=== PATIENT | male | born 1985 | race Two or more races ===

== ENCOUNTER 2023-04-12 11:46 | Emergency (ER) | payer OTHER ==
[~2023-04-12] VITALS: Ht 182.9 cm; Wt 100.0 kg
[2023-04-12 12:08] VITALS: O2SAT 98
[2023-04-12] MEDS ORDERED: LISI1POW (12:31)
[2023-04-12] MEDS ORDERED: METF-900 (12:31)
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
[2023-04-12 15:35] VITALS: BP 153/99; PULSE 98; RESP 14; TEMP 98.4
== END 2023-04-12 15:53 | disposition home or self-care (01) ==
LOC: ER 11:47
DX: R51.9 Headache, unspecified (principal); V89.2XXA Person injured in unspecified motor-vehicle accident, traffic, initial encounter; Y93.89 Activity, other specified; Y92.89 Other specified places as the place of occurrence of the external cause; Y99.8 Other external cause status
CPT/HCPCS: 99282

== ENCOUNTER 2023-06-21 10:04 | Emergency (ER) | payer OTHER ==
[~2023-06-21] VITALS: Ht 185.4 cm; Wt 92.9 kg
[~2023-06-21 10:04] MED LIST: LISI1POW; METF-900
[2023-06-21] MEDS ORDERED: TAM75C PO (13:00)
[2023-06-21 13:05] VITALS: BP 168/79; PULSE 91; RESP 16; TEMP 98; O2SAT 94
== END 2023-06-21 13:06 | disposition home or self-care (01) ==
LOC: ER 10:04
DX: J11.1 Influenza due to unidentified influenza virus with other respiratory manifestations (principal); Z20.822 Contact with and (suspected) exposure to COVID-19
CPT/HCPCS: 36415; 71045; 87502; 87503; 87811; 99284